=== PATIENT | female | born 1990 | race Caucasian/White ===

== ENCOUNTER 2024-05-02 19:10 | Emergency (ER) | payer MEDICAID ==
[~2024-05-02] VITALS: Ht 160 cm; Wt 104.3 kg
[2024-05-02] MEDS ORDERED: ONDANSETRON ODT 4 MG TAB.RAPDIS ONE (20:15)
[2024-05-02] MEDS: ONDANSETRON ODT 4 MG TAB.RAPDIS SL ONE (20:25)
[2024-05-02] MEDS ORDERED: ACETAMINOPHEN 500 MG TABLET ONE (20:54)
[2024-05-02] MEDS: ACETAMINOPHEN 500 MG TABLET PO ONE (20:55)
[2024-05-02 21:25] LABS: CALCIUM 9.2 mg/dL (8.5-10.1); CREATININE 0.7 mg/dL (0.6-1.3); POTASSIUM 3.5 mmol/L (3.5-5.1)
[2024-05-02 23:19] VITALS: BP 137/75; O2SAT 98
== END 2024-05-02 23:20 | disposition left against medical advice (07) ==
LOC: ER 19:11
DX: R51.9 Headache, unspecified (principal); R42 Dizziness and giddiness; R11.0 Nausea; R00.2 Palpitations
CPT/HCPCS: 36415; 70450; 84484; 93005; A4606; A4663; A9150; Q0162